=== PATIENT | female | born 1955 | race Two or more races ===

== ENCOUNTER 2019-10-02 10:21 | Emergency (ER) | payer SELFPAY ==
[~2019-10-02] VITALS: Ht 170.2 cm; Wt 49.9 kg
--- NOTE | 2019-10-02 11:39 | NUR ---
Social service consult requested by SAMMI Fatima in ED for homeless discharge. COMMERCIAL REAL ESTATE AGENT met with the pt. in ED. Pt declined to speak with SW at this time. COMMERCIAL REAL ESTATE AGENT is available, if needed.
--- NOTE | 2019-10-02 11:40 | NUR ---
PT IS HOMELESS, DYLON JEFFRIES CALLED TO SEE PATIENT. PER MERVIN OSBORNE. PT REFUSED POWER LINE INSTALLER AND REPAIRER HELP.
--- NOTE | 2019-10-02 13:00 | NUR ---
HEAD TENNIS PROFESSIONAL was called again to ED to assess the pt. Pt is willing to speak with SW. HEAD TENNIS PROFESSIONAL met with the pt in ED along with SAMMI Tolliver. Pt is alert and oriented x 4. Pt was sitting in a chair. Pt's mood is congruent. Pt. reports to be homeless. Pt seems reluctant to provide personal information. Pt denies any SI/HI and visual/auditory hallucinations at this time. HEAD TENNIS PROFESSIONAL offered pt winter skilled nursing placement and pt states she might be interested. [facility] provided pt with homeless packet which includes [facility] 5171-5262 Winter Detention program list, [facility] [place], [facility] ; [facility] Homeless Resource Directory which includes food stamps, transitional housing, showers and hot meals etc; Mental Health clinics such as [facility] ; [facility] ; Health clinics;[facility] and Alcohol treatment centers such as [facility], ; [facility] Substance Abuse Hotline and [facility] . Pt was provide with a TAP card. Homeless patient waiver form was signed by the pt and placed in pt's chart. No other social service needs are requested at this time.
--- NOTE | 2019-10-02 13:17 | NUR ---
Patient discharged to home in stable condition. Written and verbal after care instructions given. Patient verbalizes understanding of instruction. TAP CARD PROVIDED TO PATIENT
[2019-10-02 13:55] VITALS: BP 127/84
== END 2019-10-02 13:55 | disposition home or self-care (01) ==
LOC: ER 10:25
DX: M79.642 Pain in left hand (principal); Z59.0 Homelessness